=== PATIENT | female | born 1935 | race Caucasian/White ===

== ENCOUNTER → 2017-06-19 | Outpatient (CLI) | payer MEDICARE ==
--- NOTE | 2017-06-20 08:23 | CT ---
EXAM DESCRIPTION: Chest w/o Contrast CLINICAL HISTORY: DIAPHRAGMATIC HERNIA COMPARISON: None Available. TECHNIQUE: Noncontrast spiral CT with coronal and sagittal reformatted images. This exam was performed according to our departmental dose-optimization program, which includes automated exposure control, adjustment of the mA and/or kV according to patient size and/or use of iterative reconstruction technique. FINDINGS: Diaphragmatic hernia originating at the aortic/esophageal hiatus with the orifice of the hernia sac best appreciated on coronal and sagittal reformatted images 6.3 cm transverse on coronal image 68 and 5.9 cm anteroposterior on sagittal image 120. The following structures contained within the hernia sac, the entire stomach, splenic flexure and a portion of the descending and transverse colon, and the tail of the pancreas. No pulmonary edema, alveolar consolidation or effusion. Atelectasis left lower lobe, compressive atelectasis adjacent to the posterior margin of the diaphragmatic hernia. Heart size top limits normal. Mitral calcification, aortic annulus calcification and coronary artery calcifications No thoracic mass lesion or adenopathy No acute bony abnormality. Multilevel degenerative change in the spine with smooth kyphosis IMPRESSION: Large left diaphragmatic hernia containing stomach, large intestine and pancreas Electronically signed by: Rd Granados MD 06/20/2017 8:21 AM CDT
--- NOTE | 2017-06-20 08:27 | CT ---
EXAM DESCRIPTION: CT abdomen and pelvis without contrast CLINICAL HISTORY: DIAPHRAGMATIC HERNIA COMPARISON: None Available. TECHNIQUE: Noncontrast spiral CT with coronal and sagittal reformatted images. This exam was performed according to our departmental dose-optimization program, which includes automated exposure control, adjustment of the mA and/or kV according to patient size and/or use of iterative reconstruction technique. 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 3.3 cm right renal cyst. No abdominal visceral mass lesion to suggest neoplasm. Calcified granulomas in the liver and spleen. Extensive sigmoid diverticulosis with other scattered diverticula in the remainder of the colon. No diverticulitis. No mass lesion or inflammatory process identified in the stomach, small or large intestine. No mass lesion or adenopathy in the omentum, mesentery or retroperitoneum Multilevel degenerative change in the spine with mild levoscoliosis. No acute bony abnormality. Remote posttraumatic deformity left pubic bone and left sacrum, seen as acute fractures on the CT from 09/23/2016 IMPRESSION: Large diaphragmatic hernia. Please refer to CT chest report No evidence of abdominal or pelvic neoplasm or acute inflammatory process Diverticulosis without diverticulitis. Electronically signed by: Rd Granados MD 06/20/2017 8:26 AM CDT
== END | disposition home or self-care (01) ==
LOC: CT 10:51
PROVIDERS: ATTEND General Practice
DX: K44.9 Diaphragmatic hernia without obstruction or gangrene (principal)